=== PATIENT | male | born 1945 | race Caucasian/White ===

== ENCOUNTER → 2020-07-31 | Outpatient (CLI) | payer OTHER, BC ==
[~2020-07-31] MED LIST: CENTRUM SILVER1 EAC2 PO; CHILDREN'S ASPI81 M1 PO; LIPITOR40 MG PO; LISINOPRIL5 MG PO; LORATIDINE 10 M10 M1 PO; NADOLOL 20 MG T20 M1 PO; NASACORT10.8 ML NASAL; NORVASC 2.5 MG2.5 M1 PO; PROTONIX40 M2 PO
== END ==
LOC: LAB 12:15
PROVIDERS: ATTEND Orthopaedic Surgery
DX: Z01.812 Encounter for preprocedural laboratory examination (principal); Z20.828 Contact with and (suspected) exposure to other viral communicable diseases

== ENCOUNTER 2020-08-04 06:07 | Inpatient (IN) | payer OTHER, BC ==
[2020-07-15 10:52] LABS: HEMATOCRIT 46.2 % (42.0-52.0); HEMOGLOBIN 15.5 gm/dL (14.0-18.0); MCH 30.6 pg (26.0-34.0); MCHC 33.6 g/dL (28.0-37.0); MCV 90.9 fL (80.0-100.0); RBC 5.08 mil/uL (4.50-6.00); RDW 15.3 % (10.5-14.5); WBC 5.6 thou/uL (4.0-11.0)
[2020-07-15 10:57] LABS: URINE BILIRUBIN NEGATIVE (Negative); URINE BLOOD NEGATIVE (Negative); URINE CLARITY CLEAR; URINE COLOR YELLOW; URINE GLUCOSE-RANDOM* NEGATIVE (Negative); URINE KETONES NEGATIVE (Negative); URINE LEUKOCYTES-REFLEX NEGATIVE (Negative); URINE NITRITE-REFLEX NEGATIVE (Negative); URINE PROTEIN (DIPSTICK) NEGATIVE (Negative); URINE SPECIFIC GRAVITY 1.015 (1.005-1.035)
[2020-07-15 11:03] LABS: ALBUMIN 3.7 g/dL (3.4-5.0); CALCIUM 8.7 mg/dL (8.5-10.1); CREATININE 1.1 mg/dL (0.7-1.3); INR 1.1; POTASSIUM 4.3 mmol/L (3.5-5.1); PROTIME 11.4 Seconds (9.3-11.4)
[~2020-08-04] VITALS: Ht 170.2 cm; Wt 64.0 kg
[2020-08-04 07:26] VITALS: BP 128/78
--- NOTE | 2020-08-04 12:16 | NUR ---
PATIENT ADMITTED FROM OR WITH LEFT TOTAL KNEE REPLACEMENT, PATIENT AROUSABLE, C/O MILD PAIN WITH LEFT KNEE, CADENCE DRESSING,KNEE [facility], SCD'S, HEMOVAC. PATIENT HAS LEFT FOREARM IV IN PLACE, 1/2 NS AT 100CC/HR STARTED, COLACE GIVEN. PATIENT C/O NAUSEA, ZOFRAN 4 MG IV GIVEN. AT BEDSIDE. ADMISSION COMPLETED, REPORT GIVEN TO JEANNINE/ADAM.
[2020-08-04 18:42] VITALS: BP 122/76
--- NOTE | 2020-08-04 19:51 | NUR ---
PT RESTING IN BED ALERT XS 4. LEFT KNEE PICCO DRESSING INTACT. HAS ICE BAG TO KNEE. FLUIDS INFUSING AND IV ABT HUNG ORDERED. HEMOVAC EMPTIED XS 2 400 AND 100. PT STATES NO PAIN. IS PLEASANT AND COOPERATIVE WITH CARE.
[2020-08-04 20:20] VITALS: BP 111/64
[2020-08-04 20:23] VITALS: BP 111/64
--- NOTE | 2020-08-05 05:38 | NUR ---
ASSUMED CARE OF PT AT 1900HRS. PT AOX4 AND LETS NEEDS BE KNOWN. PT IS POST OP LEFT TOTAL KNEE DAY 1. SURGICAL SITE IS C/D/I. PT REPORTS MINIMAL PAIN/DISCOMFORT. PT DENIES NAUSEA OR SOA. PT WEANED OFF O2. PT DANGLED LEGS AT THE SIDE OF THE BED. HEMOVAC DRAINED 150 ML OF SEROUS LIQUID OVER NIGHT. NEURO CHECKS ARE NEGATIVE. PT WAS ABLE TO GET COMFORTABLE AND SLEEP PART OF THE SHIFT. VSS AND NO S/S OF ACUTE DISTRESS WILL CONTINUE TO MONITOR.
[2020-08-05 05:53] LABS: CALCIUM 7.7 mg/dL (8.5-10.1); CREATININE 1.1 mg/dL (0.7-1.3); MAGNESIUM 1.9 mg/dL (1.8-2.4)
[2020-08-05 06:04] LABS: ABSOLUTE NEUTROPHILS 10.6 thou/uL (1.4-8.2); EOSINOPHILS 0.1 % (0.0-3.0); HEMATOCRIT 35.9 % (42.0-52.0); HEMOGLOBIN 11.9 gm/dL (14.0-18.0); LYMPHOCYTES 8.9 % (24.0-44.0); MCH 30.4 pg (26.0-34.0); MCHC 33.1 g/dL (28.0-37.0); MCV 91.7 fL (80.0-100.0); MONOCYTES 6.6 % (1.0-8.0); PLATELET COUNT 160 thou/uL (150-400); POLYS 84.4 % (36.0-66.0); RBC 3.91 mil/uL (4.50-6.00); WBC 12.5 thou/uL (4.0-11.0)
--- NOTE | 2020-08-05 07:58 | O ---
[facility] [place] [address] OPERATIVE REPORT Name: JASIEL ENGLAND Room #: 439-P ADM IN M.R.#: [id number] Admission: 08/04/20 Attend Phys: Esteban Joy MD Discharge: Date of : 43 Report #: [id number] THIS REPORT FOR: cc: CHENTE GUTIERRES - Family physician unknown Esteban Joy MD ~ CC: Esteban NAJERA unknown CHENTE GUTIERRES DATE OF SERVICE: 08/04/2020 PREOPERATIVE DIAGNOSIS: End-stage degenerative arthritis, left knee. POSTOPERATIVE DIAGNOSIS: End-stage degenerative arthritis, left knee. PROCEDURE: Left total knee arthroplasty. SURGEON: Esteban Joy MD INDICATIONS: This slender, active and fit 74-year-old gentleman has chronic progressive degenerative arthritis involving both knees. There is moderate valgus malalignment. He is unable to continue an active lifestyle and has rather marked pain with activity and also at rest. He has elected to go ahead with total knee replacement, beginning on the left side. DESCRIPTION OF PROCEDURE: The patient was taken to the operating room where he was placed under general anesthesia. Prophylactic intravenous antibiotics were administered. A femoral nerve block was also applied. The left knee and leg were meticulously prepped and draped. A thigh tourniquet was applied and inflated to 300 mmHg. An anterior longitudinal skin incision was made and carried through the medial retinaculum. The patella was reflected laterally and marked degenerative change in all 3 compartments was noted. The Daniels and Nephew knee system was utilized. Intramedullary guides were used on both the femur and the tibia. The femur was cut in 5 degrees of valgus and the tibia cut perpendicular to the long axis of the bone, which nicely improved his preoperative valgus malalignment. The femur was best suited for a size 4 left femoral component. The tibia was also best suited for a size 4 tibial component. A trial reduction was performed and a 9 mm polyethylene insert fit nicely and resulted in a good range of motion and stability. The patellar surface was resected and a 35 mm patellar button fit nicely. The trial components were removed. The intramedullary canal was blocked with a bone block on both the femoral and tibial sides. The surfaces were thoroughly irrigated and dried. Methyl methacrylate cement was then mixed and injected into the porous surface of the tibia. The permanent Daniels and Nephew components were brought up on to the field. The left size 4 patella tibial baseplate was [address] [address] OPERATIVE REPORT Name: JASIEL ENGLAND Room #: 439-P [facility] IN ..#: [id number] Admission: 08/04/20 Attend Phys: Esteban Joy MD Discharge: Date of : 43 Report #: [id number] selected. This was impacted into position in appropriate alignment. It seated nicely. Excess cement was removed from around its margin. A size 4 9 mm Legion cruciate retaining polyethylene insert was then snapped into position. It seated nicely and appeared to be secure. A left size 4 cruciate retaining Legion femoral component was impacted on the distal femur. A small amount of cement was also used at the distal lug hole sites. The femur seemed to fit nicely and appeared to be secure. A 35 mm patellar button was then cemented into place using appropriate anchor holes. The patella was secured with a patellar clamp until the cement had hardened. Once the cement was secure, alignment, range of motion and stability were assessed and felt to be satisfactory. The knee demonstrates full knee extension and flexion beyond 130 degrees. The patellar tracks nicely and appears to be stable. At this point, the wound was copiously irrigated. The tourniquet was deflated after a total tourniquet time of 51 minutes. A single Hemovac was left in the wound exiting through a separate lateral stab incision. The fascia was closed with multiple #1 Vicryl sutures. Subcutaneous tissues were closed with 0 Monocryl. The skin was closed with skin trudy. A sterile dressing was applied. The patient was awakened and returned to recovery room in good condition. <ELECTRONICALLY SIGNED> By: Esteban Joy MD 08/05/20 [id number] Esteban Joy MD /nt
[2020-08-05 09:11] VITALS: BP 104/65
--- NOTE | 2020-08-05 09:43 | NUR ---
ASSESSMENT: CM REVIEWED CHART. PT IS HERE S/P LEFT TKR. CM MET WITH PT AND HE IS ALERT AND ORIENTED X4. 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 PT REPORTS NO STEPS TO ENTER OR TO USE ONCE INSIDE. PT STATES HE HAS AN UPPER LEVEL BUT DOES NOT GO UP THERE. PT REPORTS THAT HE AMBULATES INDEPENDENTLY AND DOES NOT HAVE ANY DME AT HOME. PT REPORTS HE IS USUALLY VERY ACTIVE. PT REPORTS THEY HAVE A GRAB BAR AND SHOWER CHAIR AND HE IS INDEPENDENT WITH ADLS. PT REPORTS HE HAS NOT HAD HH IN THE PAST AND DOES NOT HAVE OUTPATIENT THERAPY SET UP. PT REPORTS DR. LIM OFFICE SENT A REFERRAL TO [facility] AND HE HAS BEEN SPEAKING WITH THEM AND WANTS TO USE THEM. CM FAXED REFERRAL TO [facility] AND NOTIFIED LIASON. PT WILL CONTINUE TO WORK WITH THERAPY AND DISCHARGE HOME IN COUPLE DAYS PER ATTENDINGS NOTE. CM WILL CONTINUE TO FOLLOW TO ASSIST NEEDED.
--- NOTE | 2020-08-05 13:09 | NUR ---
PT IS A&OX4, VSS (BP RUNS LOW), AMBULATES WITH ONE PERSON ASSIST, REGULAR DIET. DRESSING INTACT AND DRY, PT WALKED PATIENT THIS MORNING. KEEPING ICE PACK ON KNEE, PAIN MEDS GIVEN, PT HAS A HEMOVAC. PT IN PLEASANT MOOD AND UP IN CHAIR. FALL PRECAUTION IN PLACE, WILL CONTINUE TO MONITOR.
[2020-08-05 16:15] VITALS: BP 135/78
--- NOTE | 2020-08-05 19:26 | NUR ---
PT A&OX4, AMBULATES WITH ONE PERSON ASSIST BED TO CHAIR, MODERATE PAIN TREATED WITH PAIN MEDS. PATIENT WORKED WITH PT AND IN GOOD SPIRITS, HOWEVER HAS A LOW APPETITE. PT HAS ICE PACK INTACT, AND A HEMOVAC INTACT. FALL PRECAUTIONS IN PLACE, WILL CONTINUE TO MONITOR.
--- NOTE | 2020-08-05 19:31 | NUR ---
I AGREE WITH NURSING ASSESSMENT AND NOTE DONE BY LEONARD/DANAY.
[2020-08-05 20:10] VITALS: BP 140/76
--- NOTE | 2020-08-06 02:23 | NUR ---
ASSESSED AT START OF SHIFT, PT A&OX4 DENIES N/V. HYDROCODONE GIVEN FOR PAIN MANAGEMENT. HEMOVAC INTACT WITH 60CC OUT AT START OF SHIFT WILL MONITOR TILL EOS. FALL PREC IN PLACE, CALL LIGHT IN REACH. URINAL AT BEDSIDE. ADEQUATE PO FLUIDS. PT UP WITH ASSIST WITH A WALKER.
[2020-08-06 06:14] LABS: HEMATOCRIT 34.2 % (42.0-52.0); HEMOGLOBIN 11.7 gm/dL (14.0-18.0); MCHC 34.3 g/dL (28.0-37.0); MCV 90.4 fL (80.0-100.0); RBC 3.78 mil/uL (4.50-6.00); WBC 8.1 thou/uL (4.0-11.0)
[2020-08-06 07:30] VITALS: BP 143/82
--- NOTE | 2020-08-06 14:01 | NUR ---
ON-GOING ASSESSMENT: CM REVIEWED CHART. PT IS CONTINUING WITH THERAPY AND PLANS FOR DISCHARGE HOME TOMORROW. [facility] HAS ACCEPTED PT AND WILL CONTINUE TO FOLLOW. PT IS NEEDING A WALKER FOR HOME AND HAS NO PREFERENCE OF DME COMPANY. CM NOTIFIED [employer] AND THEY CAN SUPPLY WALKER AND WILL DELIVER TOMORROW AM. CM WILL CONTINUE TO FOLLOW TO ASSIST NEEDED.
[2020-08-06 14:03] VITALS: BP 148/82
[2020-08-06 16:30] VITALS: BP 130/76
--- NOTE | 2020-08-06 18:43 | NUR ---
PT IS AOX4, VSS, PAIN CONTROLLED WITH ORAL ANALGESIC. CALL LIGHT IN REACH. NO DISTESS NOTED. WILL CONTINUE TO MONITOR.
[2020-08-06 19:22] VITALS: BP 136/83
--- NOTE | 2020-08-07 01:08 | NUR ---
08/06/201899 ASSUMED CARE OF PT AFTER BEDSIDE REPORT, PT STATES PAIN IS UNDER CONTROL JUST SLIGHT DISCOMFORT. 2030 BASELINE ASSESSMENT COMPLETED, PT STATES HE HAS BEEN UP SEVERALT TIMES WITH NO ISSUES, URINATING EASILY, SENSATION INTACT WITH CAP REFILL LESS THAN 3 SEC BLE, ICE IN PLACE WILL CONTINUE TO MONITOR.
[2020-08-07 04:38] VITALS: BP 137/77
[2020-08-07 06:23] LABS: HEMATOCRIT 35.3 % (42.0-52.0); MCH 30.7 pg (26.0-34.0); MCHC 33.9 g/dL (28.0-37.0); MCV 90.4 fL (80.0-100.0); RBC 3.9 mil/uL (4.50-6.00); WBC 7.2 thou/uL (4.0-11.0)
[2020-08-07] MEDS ORDERED: XARELTO10 MG PO (07:54)
[2020-08-07] MEDS ORDERED: NORCO 10-325 T1 EACH PO (07:55)
[2020-08-07 08:12] VITALS: BP 151/85
[2020-08-07 08:44] VITALS: BP 157/85
--- NOTE | 2020-08-07 09:34 | NUR ---
PT A&OX4, VSS, AMBULATES BY WALKER AND UP WITH ASSIST. PT WILL DISCHARGE WITH A CADENCE DRESSING, AND DR ELAINE VISIT WITH PT THIS MORNING. OT VISIT WITH PATIENT THIS MORNING. FALL PRECAUTIONS IN PLACE, WILL CONTINUE TO MONITOR.
[2020-08-07 09:45] VITALS: BP 148/82
--- NOTE | 2020-08-07 10:04 | NUR ---
ON-GOING ASSESSMENT: CM REVIEWED CHART AND SPOKE WITH PATIENT. PLANS ARE FOR PATIENT TO DISCHARGE HOME TODAY WITH [facility]. CM FAXED D/C ORDERS TO [facility] AND VERIFIED THEY RECEIVED THEM. ALDAIR ALSO SPOKE WITH LIASON FROM [facility]. PTS IS AT BEDSIDE. CASE CLOSED.
--- NOTE | 2020-08-08 11:11 | D ---
[facility] [place] [address] DISCHARGE SUMMARY Name: JASIEL ENGLAND Room #: 439-P [facility] IN M.R.#: [id number] Admission: 08/04/20 Attend Phys: Esteban Joy MD Discharge: 08/07/20 Date of : 43 Report #: [id number] THIS REPORT FOR: cc: CHENTE GUTIERRES - Family physician unknown Esteban Joy MD ~ THIS REPORT FOR: //name// CC: Esteban NAJERA unknown CHENTE GUTIERRES DATE OF SERVICE: 08/07/2020 FINAL DIAGNOSES: 1. End-stage degenerative arthritis, left knee. 2. Hypertension. OPERATION PROCEDURES: Left total knee arthroplasty. HISTORY OF PRESENT ILLNESS: This slender, fit and active 74-year-old gentleman has rather severe degenerative arthritis involving both knees. He has decided to go ahead with knee replacement beginning on the left side. HOSPITAL COURSE: The patient was admitted and taken to the operating room on 08/04. He underwent left total knee replacement, which he tolerated quite nicely. Postoperatively, the x-rays look good. The dressing has remained dry. He has been advanced to a regular diet and oral analgesics. He has been on Xarelto for anticoagulation and resumed his other routine medications. He has made excellent progress with therapy and seems now to be safe and functionally independent. He is ready for discharge home with assistance from family and also some visiting therapy at home. DISCHARGE MEDICATIONS: Include Xarelto 10 mg daily, hydrocodone 10 mg q.6 hours as needed for pain, Lipitor 40 mg daily, nadolol 20 mg daily, amlodipine 5 mg daily, lisinopril 5 mg daily, Nasacort nasal sprays p.r.n. He will continue moderate gentle activity as comfort, strength, and balance will allow. I have asked him to call me if there are any problems or questions. I will plan to see him back in my office in 1 week for followup and 2 weeks for suture removal. <ELECTRONICALLY SIGNED> By: Esteban Joy MD 08/08/20 [id number] Esteban Joy MD /nt
== END 2020-08-07 14:28 | disposition home health service (06) | DRG 470 ==
LOC: 4S 06:07 → TBA 06:07 → PRE 10:12 → 4S 10:58 → PRE 12:00 → 4S 08-07 14:28
PROVIDERS: Nurse Practitioner; ADMIT Orthopaedic Surgery; ATTEND Orthopaedic Surgery
PROC: 0SRD0J9 Replacement of Left Knee Joint with Synthetic Substitute, Cemented, Open Approach (ICD-10-PCS; principal; 2020-08-04)
DX: M17.12 Unilateral primary osteoarthritis, left knee (principal); I10 Essential (primary) hypertension; I25.10 Atherosclerotic heart disease of native coronary artery without angina pectoris; E78.5 Hyperlipidemia, unspecified; K21.9 Gastro-esophageal reflux disease without esophagitis; F32.9 Major depressive disorder, single episode, unspecified; Z87.891 Personal history of nicotine dependence; Z95.5 Presence of coronary angioplasty implant and graft; Z79.899 Other long term (current) drug therapy
CPT/HCPCS: 10195; 50010; 50101; 50415; 50954; 51130; 51225; 51412; 51771; 53364; 56525; 57095; 57103; 57104; 57180; 62110; 62900; 64039; 70005